=== PATIENT | female | born 1970 | race Caucasian/White ===

== ENCOUNTER 2020-11-29 06:50 | Day surgery (SDC) | payer OTHER ==
[~2020-11-29] VITALS: Ht 170.2 cm; Wt 92.5 kg
[2020-11-29 08:54] VITALS: BP 117/78
[2020-11-29 16:14] VITALS: BP 123/83
== END 2020-11-29 16:00 ==
LOC: DS 06:50 → OR 13:00 → DS 16:00
PROVIDERS: ATTEND Internal Medicine Gastroenterology
DX: I85.10 Secondary esophageal varices without bleeding (principal); K76.6 Portal hypertension; K31.89 Other diseases of stomach and duodenum; B19.20 Unspecified viral hepatitis C without hepatic coma; K31.7 Polyp of stomach and duodenum; Z79.82 Long term (current) use of aspirin
CPT/HCPCS: 43235; J1200; J1610; J2250; J2310; J3010; J3490